=== PATIENT | male | born 1930 | race Caucasian/White ===

== ENCOUNTER 2016-10-21 09:15 | Emergency (ER) | payer MEDICARE, OTHER ==
[~2016-10-21] VITALS: Ht 167.6 cm; Wt 76.2 kg
[~2016-10-21 09:15] MED LIST: AMLO10TA2 PO; ATEN25TA PO; CHOL4PAC2 PO; DOXA2TAB2 PC
--- OUTSIDE RECORDS SUMMARY | 2016-10-21 09:20 | XMS REPORT | Continuity of Care Document ---
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 02/20/2009 Ot V45.72 ACQRD ABSENCE INTESTINE - LARGE/SMALL 02/20/2009 Ot V67.09 SURGERY FOLLOW-UP, OTHER SURGERY 02/04/2015 FRANCOISE QUIROZ MD Ot E04.9 02/07/2015 FRANCOISE QUIROZ MD Ot E04.9 06/23/2015 FRANCOISE QUIROZ MD Ot E04.9 06/23/2015 SAMY NGUYEN APRN Ot R19.7 DIARRHEA, UNSPECIFIED 06/23/2015 FRANCOISE QUIROZ MD Ot E04.9 06/25/2015 SAMY NGUYEN APRN Ot R19.7 06/25/2015 FRANCOISE QUIROZ MD Ot E04.9 08/13/2015 FRANCOISE QUIROZ MD Ot E04.9 NONTOXIC GOITER, UNSPECIFIED 02/05/2016 FRANCOISE QUIROZ MD Ot E04.9 NONTOXIC GOITER, UNSPECIFIED 05/21/2016 FRANCOISE QUIROZ MD Ot E04.9 NONTOXIC GOITER, UNSPECIFIED Procedures Results Encounters ACCT No. Visit Date/Time Discharge Status Pt. Type Provider Facility Loc./Unit Complaint [id number] 06/23/2015 21:46:00 2015 23:30:00 DIS Emergency SAMY NGUYEN APRN [facility] ER DEHYDRATION [id number] 01/17/2015 09:21:00 2014 23:59:59 CLS Outpatient GABRIELLA AGUILAR, FRANCOISE Feldman [facility] RAD ENLARGED RT LOBE OF THRYOID [id number] 02/20/2009 06:35:00 Document Registration
[2016-10-21] MEDS ORDERED: NS IV 500 ML 500 ML IV ONE (09:51)
--- NOTE | 2016-10-21 09:51 | ED Fall/Injury ---
General Chief Complaint: Trauma-Non Activation Stated Complaint: FALL/HEAD INJ Source: patient Exam Limitations: no limitations History of Present Illness Time seen by provider: 09:38 Initial Comments Patient arrived by private vehicle with his spouse to the ED with a chief complaint of a fall yesterday about 3:00 in the afternoon. He says he had been outside and was very hot today came inside drink a glass of water and took a nap was awoke by the phone which she then took to his and the sewing room and when he had handed to her and turned around Aleve he doesn't remember exactly how or why he fell. He denied any palpitations chest pain or shortness of breath at the time. He's never had falls before. No heart history. He states he does not exactly remember the fall but he murmurs immediately after he hit the ground that he hit his head on the right back occipital scalp against the door jam and that was only pain he had time. Since that time he was doing well without any headache pain, nausea or other worrisome symptoms. He says his gait is stable as ever. He says he has no amnesia. He is not feeling recently sick. He called his doctor to make an appointment next week to be seen and was told by his doctors office he should go to the ER given the fact he had a fall. He is not on blood thinners. 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 He is not admitting any dizziness or ringing or tinnitus. Later the relates to me that for about 45 minutes after the fall he was experiencing amnesia thinking that he had just woke up from a nap and did not remember the fall at all. Allergies and Home Medications Allergies Coded Allergies: No Known Drug Allergies (Unverified , 06/23/15) Home Medications Amlodipine Besylate 10 Mg Tablet, 1 TAB PO DAILY, #90 (Reported) Atenolol 25 Mg Tablet, 1 TAB PO HS, #90 (Reported) Cholestyramine (with Sugar) 4 Gm Powd.pack, 4 G PO BID, #30 (Reported) Doxazosin Mesylate 2 Mg Tablet, 1 TAB PC DAILY, #90 (Reported) Constitutional: No chills, No diaphoresis, No dizziness, No fever, No malaise Eyes: Denies Blindness, Denies Blurred Vision, Denies Decreased Acuity Ears, Nose, Mouth, Throat: denies ear pain, denies ear discharge, denies epistaxis Respiratory: No cough, No short of breath Cardiovascular: No edema, No Hx of Intervention, No palpitations, No syncope, No vascular heart diseas Gastrointestinal: No abdominal pain, No constipation, No diarrhea, No nausea, No vomiting Genitourinary: No discharge, No dysuria Musculoskeletal: No back pain, No joint pain Skin: see HPI, No pruritus, No rash, other (small bump on the right side back of his head) Psychiatric/Neurological: Denies Headache, Denies Numbness, Denies Paresthesia Past Aebtgve-Auevqh-Jrinye Hx Patient Social History Alcohol Use: Occasionally Uses Recreational Drug Use: No Smoking Status: Never a Smoker Recent Foreign Travel: No Contact w/Someone Who Travel: No Immunizations Up To Date Tetanus Booster (TDap): Unknown Seasonal Allergies Seasonal Allergies: No Surgeries HX Surgeries: Yes Surgeries: Abdominal, Appendectomy, Gallbladder Respiratory Hx Respiratory Disorders: No Cardiovascular Hx Cardiac Disorders: Yes Cardiac Disorders: Hypertension Neurological Hx Neurological Disorders: No Genitourinary Hx Genitourinary Disorders: No Gastrointestinal Hx Gastrointestinal Disorders: Yes Gastrointestinal Disorders: Diverticulosis Musculoskeletal Hx Musculoskeletal Disorders: No Endocrine Hx Endocrine Disorders: No HEENT HX ENT Disorders: No Cancer Hx Cancer: No Psychosocial Hx Psychiatric Problems: No Integumentary HX Skin/Integumentary Disorder: No Blood Transfusions Hx Blood Disorders: No Adverse Reaction to a Blood Tr: No Physical Exam Vital Signs Vital Sign - Last 12Hours 10/21/16 09:55 Temp 98.6 Pulse 85 Resp 18 B/P (MAP) 182/82 Pulse Ox 97 Capillary Refill : General Appearance: WD/WN, no apparent distress HEENT: PERRL/EOMI, pharynx normal, TM abnormal (L) (otosclerosis with normal canals bilaterally and clear TM on the right) Neck: non-tender, full range of motion, supple, normal inspection Cardiovascular: normal peripheral pulses, regular rate, rhythm, no edema, no murmur Respiratory: chest non-tender, lungs clear, normal breath sounds Peripheral Pulses: 3+ Radial Pulses (R), 3+ Radial Pulses (L) Gastrointestinal: normal bowel sounds, non tender, soft Extremities: no pedal edema, normal capillary refill Neurologic/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 Normal gait. Cerebellar testing unremarkable) Skin: normal color, warm/dry, ecchymosis (faint ecchymosis and very small, superficial abrasion to right parietal posterior scalp) Lymphatic: no adenopathy [place] Coma Score Best Eye Response: (4) Open Spontaneously Best Verbal Response: (5) Oriented Best Motor Response: (6) Obeys Commands Razia Total: 15 Progress/Results/Core Measures Results/Orders Lab Results Laboratory Tests Test 10/21/16 10:05 10/21/16 10:27 Range/Units White Blood Count 6.0 4.3-11.0 10^3/uL Red Blood Count 5.36 4.35-5.85 10^6/uL Hemoglobin 15.3 13.3-17.7 G/DL Hematocrit 46 40-54 % Mean Corpuscular Volume 85 80-99 FL Mean Corpuscular Hemoglobin 29 25-34 PG Mean Corpuscular Hemoglobin Concent 34 32-36 G/DL Red Cell Distribution Width 13.1 10.0-14.5 % Platelet Count 160 130-400 10^3/uL Mean Platelet Volume 9.2 7.4-10.4 FL Neutrophils (%) (Auto) 80 H 42-75 % Lymphocytes (%) (Auto) 13 12-44 % Monocytes (%) (Auto) 6 0-12 % Eosinophils (%) (Auto) 0 0-10 % Basophils (%) (Auto) 0 0-10 % Neutrophils # (Auto) 4.8 1.8-7.8 X 10^3 Lymphocytes # (Auto) 0.8 L 1.0-4.0 X 10^3 Monocytes # (Auto) 0.4 0.0-1.0 X 10^3 Eosinophils # (Auto) 0.0 0.0-0.3 10^3/uL Basophils # (Auto) 0.0 0.0-0.1 10^3/uL Sodium Level 137 135-145 MMOL/L Potassium Level 3.8 3.6-5.0 MMOL/L Chloride Level 104 98-107 MMOL/L Carbon Dioxide Level 22 21-32 MMOL/L Anion Gap 11 5-14 MMOL/L Blood Urea Nitrogen 17 7-18 MG/DL Creatinine 0.84 0.60-1.30 MG/DL Estimat Glomerular Filtration Rate > 60 BUN/Creatinine Ratio 20 Glucose Level 98 70-105 MG/DL Calcium Level 9.0 8.5-10.1 MG/DL Magnesium Level 2.0 1.8-2.4 MG/DL Total Bilirubin 0.9 0.1-1.0 MG/DL Aspartate Amino Transf (AST/SGOT) 14 5-34 U/L Alanine Aminotransferase (ALT/SGPT) 7 0-55 U/L Alkaline Phosphatase 53 40-136 U/L Troponin I < 0.30 <0.30 NG/ML C-Reactive Protein High Sensitivity 0.22 0.00-0.50 MG/DL Total Protein 7.1 6.4-8.2 GM/DL Albumin 4.1 3.2-4.5 GM/DL Urine Color YELLOW Urine Clarity CLEAR Urine pH 6 5-9 Urine Specific [place] 1.010 L 1.016-1.022 Urine Protein NEGATIVE NEGATIVE Urine Glucose (UA) NEGATIVE NEGATIVE Urine Ketones NEGATIVE NEGATIVE Urine Nitrite NEGATIVE NEGATIVE Urine Bilirubin NEGATIVE NEGATIVE Urine Urobilinogen NORMAL NORMAL MG/DL Urine Leukocyte Esterase 1+ H NEGATIVE Urine RBC (Auto) NEGATIVE NEGATIVE Urine RBC NONE /HPF Urine WBC 0-2 /HPF Urine Crystals NONE /LPF Urine Bacteria NEGATIVE /HPF Urine Casts NONE /LPF Urine Mucus SMALL H /LPF Urine Culture Indicated NO My Orders Orders - HENRI FRASER Cbc With Automated Diff (10/21/16 09:51) Comprehensive Metabolic Panel (10/21/16 09:51) Hs C Reactive Protein (10/21/16 09:51) Magnesium (10/21/16 09:51) Troponin I (10/21/16 09:51) Ua Culture If Indicated (10/21/16 09:51) Saline Lock/Iv-Start (10/21/16 09:51) Ns Iv 500 Ml (Sodium Chloride 0.9%) (10/21/16 09:51) Ekg Tracing (10/21/16 09:51) Ct Head Wo (10/21/16 10:00) Vital Signs/I&O Vital Sign - Last 12Hours 10/21/16 09:55 Temp 98.6 Pulse 85 Resp 18 B/P (MAP) 182/82 Pulse Ox 97 Progress Note : Time: 09:58 Progress Note Patient describes an episode of what could be vasovagal syncope exacerbated by dehydration. We will obtain urine and blood looking for signs of infection. We' ll obtain EKG looking for evidence of dysrhythmia. His history is unremarkable. He is not on any Blood thinners or other medicines that would worsen his symptoms. Plain CT rolls put him in an intermediate risk category somebody because of his age. However he has already observation himself for almost a day without symptoms. The 's history of retrograde amnesia for about 45 minutes would increase the probability however so we would just get a CT scan of the head without contrast. ECG Initial ECG Impression Date: Oct 21, 2016 Initial ECG Impression Time: 10:10 Initial ECG Rate: 75 Initial ECG Rhythm: Normal Sinus Initial ECG Intervals: Normal Initial ECG Impression: Normal, Nonspecific Changes Initial ECG Comparisson: Unchanged Comment No ST wave aberration Diagnostic Imaging Diagonstic Imaging: CT Plain Films/CT/US/NM/MRI: head Comments [facility], [facility]. [place], [place] NAME: CHAIM GAN MED REC#: [id number] PT STATUS: REG ER : 1930 PHYSICIAN: HENRI FRASER MD ADMIT DATE: 10/21/16/ER Draft Date of Exam:10/21/16 CT HEAD WO PROCEDURE: CT head without contrast. TECHNIQUE: Multiple contiguous axial images were obtained through the brain without the use of intravenous contrast. INDICATION: Fall. FINDINGS: There is no intracranial hemorrhage, edema, or mass effect. The brain parenchyma and marrero-white matter differentiation is preserved. No hydronephrosis. No extra-axial fluid collection is seen. There is a right anterior frontal 1.3 x 0.5-cm ossification seen without significant soft tissue lesion. This could be a dural focal ossification or an ossified meningioma. No appreciable mass effect is seen from it on the adjacent frontal lobe. The left maxillary sinus demonstrates significant mucosal thickening and central fluid. The right maxillary sinus, the ethmoidal air cells, and the frontal sinuses appear otherwise unremarkable. IMPRESSION: 1. A 1.3-cm extra-axial right frontal ossified lesion may represent a focal dural ossification or a completely ossified meningioma with no soft tissue component or mass effect. 2. Left maxillary sinus findings may relate to sinusitis. Correlate clinically. Dictated on workstation # [id number] Dict: 10/21/16 1053 Trans: 10/21/16 1100 [id number] Interpreted by: GINA ADAIR MD Electronically signed by: Departure Impression Impression: Primary Impression: Vasovagal syncope Additional Impressions: Dehydration Sinusitis Qualified Codes: J01.00 - Acute maxillary sinusitis, unspecified Disposition: HOME, SELF-CARE Condition: Stable Departure-Patient Inst. Decision time for Depature: 11:19 Referrals: FRANCOISE QUIROZ MD (PCP/Family) Primary Care Physician Patient Instructions: Syncope (Fainting) (DC) Add. Discharge Instructions: Drink plenty of fluids and avoid caffeine. Limit your alcoholic intake to less than 1 a day for now. Go easy on strenuous activity especially outside in the middle of the day when it is my hottest. If you started having concussion symptoms such as nausea or headaches you should stop doing whatever was the triggered that symptom and rest and not reattempt that exercise until the following day. Follow-up with her primary care physician as needed. You do have a mild sinusitis which would be best treated with Flonase, Zyrtec or Claritin daily and drinking copious amounts of fluids. If this does not get better or you develop new symptoms such as fever or facial pain you should present to your doctor for further management. You have a old calcified lesion in the front of your brain seen on CT scan which does not probably correlate to anything today but should be followed up by your primary care physician. All discharge instructions reviewed with patient and/or family. Voiced understanding. Copy Copies To 1: FRANCOISE QUIROZ MD, TITUS J Oct 21, 2016 09:51
[2016-10-21 10:11] LABS: BASOPHILS % (AUTO) 0 % (0-10); EOSINOPHILS % (AUTO) 0 % (0-10); LYMPHOCYTES # (AUTO) 0.8 X 10^3 (1.0-4.0); LYMPHOCYTES % (AUTO) 13 % (12-44); MEAN CORPUSCULAR HEMOGLOBIN 29 PG (25-34); MEAN CORPUSCULAR HGB CONC 34 G/DL (32-36); MEAN CORPUSCULAR VOLUME 85 FL (80-99); MEAN PLATELET VOLUME 9.2 FL (7.4-10.4); MONOCYTES # (AUTO) 0.4 X 10^3 (0.0-1.0); MONOCYTES % (AUTO) 6 % (0-12); NEUTROPHILS # (AUTO) 4.8 X 10^3 (1.8-7.8); NEUTROPHILS % (AUTO) 80 % (42-75); PLATELET COUNT 160 10^3/uL (130-400); RED BLOOD COUNT 5.36 10^6/uL (4.35-5.85); RED CELL DISTRIBUTION WIDTH 13.1 % (10.0-14.5)
[2016-10-21 10:36] LABS: BILIRUBIN,URINE NEGATIVE (NEGATIVE); KETONES,URINE NEGATIVE (NEGATIVE); LEUKOCYTE ESTERASE ,URINE 1+ (NEGATIVE); NITRITE,URINE NEGATIVE (NEGATIVE); PH,URINE 6 (5-9); PROTEIN,URINE NEGATIVE (NEGATIVE); UROBILINOGEN,URINE NORMAL (NORMAL)
[2016-10-21 10:38] LABS: ALANINE AMINOTRANSFERASE 7 U/L (0-55); ALBUMIN 4.1 GM/DL (3.2-4.5); ANION GAP 11 MMOL/L (5-14); ASPARTATE AMINO TRANSFERASE 14 U/L (5-34); BILIRUBIN,TOTAL 0.9 MG/DL (0.1-1.0); BLOOD UREA NITROGEN 17 MG/DL (7-18); BUN/CREATININE RATIO 20; CARBON DIOXIDE 22 MMOL/L (21-32); CHLORIDE 104 MMOL/L (98-107); CREATININE SERUM 0.84 MG/DL (0.60-1.30); GFR ESTIMATED > 60; GLUCOSE 98 MG/DL (70-105); POTASSIUM 3.8 MMOL/L (3.6-5.0); SODIUM 137 MMOL/L (135-145); TOTAL PROTEIN 7.1 GM/DL (6.4-8.2); hs C REACTIVE PROTEIN 0.22 MG/DL (0.00-0.50)
[2016-10-21 10:44] LABS: TROPONIN I < 0.30 NG/ML (<0.30)
[2016-10-21 10:50] LABS: WBC,URINE 0-2 /HPF
--- NOTE | 2016-10-21 11:01 | Diagnostic Imaging Report ---
PROCEDURE: CT head without contrast. TECHNIQUE: Multiple contiguous axial images were obtained through the brain without the use of intravenous contrast. INDICATION: Fall. FINDINGS: There is no intracranial hemorrhage, edema, or mass effect. The brain parenchyma and marrero-white matter differentiation is preserved. No hydronephrosis. No extra-axial fluid collection is seen. There is a right anterior frontal 1.3 x 0.5-cm ossification seen without significant soft tissue lesion. This could be a dural focal ossification or an ossified meningioma. No appreciable mass effect is seen from it on the adjacent frontal lobe. The left maxillary sinus demonstrates significant mucosal thickening and central fluid. The right maxillary sinus, the ethmoidal air cells, and the frontal sinuses appear otherwise unremarkable. IMPRESSION: 1. A 1.3-cm extra-axial right frontal ossified lesion may represent a focal dural ossification or a completely ossified meningioma with no soft tissue component or mass effect. 2. Left maxillary sinus findings may relate to sinusitis. Correlate clinically. Dictated by: Dictated on workstation # [id number]
[2016-10-21 11:31] VITALS: BP 165/79
== END 2016-10-21 11:31 | disposition home or self-care (01) ==
LOC: EDUNIT# 09:15 → ER 09:17
DX: S09.90XA Unspecified injury of head, initial encounter (principal); S00.01XA Abrasion of scalp, initial encounter; R55 Syncope and collapse; E86.0 Dehydration; J32.9 Chronic sinusitis, unspecified; I10 Essential (primary) hypertension; Z90.49 Acquired absence of other specified parts of digestive tract; W01.198A Fall on same level from slipping, tripping and stumbling with subsequent striking against other object, initial encounter
CPT/HCPCS: 36415; 70450; 80053; 81000; 83735; 84484; 85025; 86141; 93005